=== PATIENT | female | born 1985 | race Caucasian/White ===

== ENCOUNTER 2017-05-28 16:12 | Outpatient (CLI) | payer OTHER | END 2017-05-28 16:13 | disposition critical access hospital (66) | LOC: EMS 16:12 | PROVIDERS: ATTEND Surgery | DX: O14.95 Unspecified pre-eclampsia, complicating the puerperium (principal) | CPT/HCPCS: A0425; A0426 ==

== ENCOUNTER 2017-05-28 16:46 | Inpatient (IN) | payer OTHER ==
[2017-05-28] MEDS ORDERED: SODIUM CHLORIDE FLUSH 0.9% 10 ML SYRINGE ONE (17:26)
[2017-05-28] MEDS ORDERED: HYDROmorphone 1 MG/ML SYRINGE IVP PRN (17:50)
[2017-05-28] MEDS ORDERED: ONDANSETRON 4 MG/2 ML VIAL IVP PRN (17:50)
[2017-05-28] MEDS ORDERED: ACETAMINOPHEN 1,000 MG/100 ML 100 ML IV SCH (18:00)
[2017-05-28] MEDS: LACTATED RINGERS 1,000 ML IV SCH (18:49)
[2017-05-28] MEDS ORDERED: MAGNESIUM SULFATE 40 GM in LACTATED RINGERS 420 ML IV SCH (19:00)
[2017-05-28] MEDS ORDERED: LABETALOL 100 MG TABLET PO ONE (19:14)
[2017-05-28] MEDS: HYDROcod/ACETAM 5/325 MG TABLET PO PRN ×2 (19:55→23:47)
--- NOTE | 2017-05-28 20:40 | HISTORY & PHYSICAL EXAMINATION ---
DATE OF SERVICE: 05/28/2017 Physician: Leonid Liriano MD DATE OF ADMISSION: 05/28/2017. DIAGNOSES 1. Preeclampsia (severe), . 2. Transfer from [facility]. Dr. Ross of [facility] called at just before at around 1600 hours to request transfer of Mrs. Mira Baker due to preeclampsia and need for hospital care. Dr. Leonid Liriano accepted the transfer. The patient was sent by [facility]. Mrs. Mira Baker is a 32-year-old , 2, para 2-0-0-2, woman now 4 days after an uneventful delivery of a macrosomic male on the 24 of May. weight was 4575 grams with Apgars of 8/9 and there was only minor lacerations to be repaired. She was originally induced for proteinuria, but did not have the usual constellation of symptoms associated with preeclampsia. Overall, her course was benign with no hypertensive episodes and she was discharged home. Today, she felt odd and "woozy" with notable edema of the lower legs. She had a dull, localized suboccipital headache without scotoma or scintillation. Vision was blurry. She does not note nausea, vomiting, right upper quadrant pain or nuchal rigidity. She has no fevers, chills, but she does have occasional night sweats. She has no systemic symptoms such as nausea, vomiting. She has no calf pain. Her vaginal bleeding is tapering to almost nil. She was without difficulty. At home, her blood pressure was 170/110 and she was admitted to the clinic at which time, her blood pressure was noted to be 175/107. [facility]: White count 9.1, hemoglobin 10.8, platelets 243. ALLERGIES: NO KNOWN DRUG ALLERGIES. MEDICATIONS 1. Epifoam. 2. Ibuprofen 800 q. 8h. p.r.n. 3. Labetalol 20 mg IV push previously given. 4. Levothyroxine 88 mcg daily. 5. Magnesium sulfate 4 gram bolus with current rate 2 grams. 6. vitamins with iron and folic acid. 7. Witch edvin. 8. Zofran 4 mg tabs. SOCIAL HISTORY: , [place] dependent. No drug, tobacco or alcohol use. Safe environment. No inheritable disease. FAMILY HISTORY: Breast cancer, diabetes, heart disease, hypertension and thyroid disease. PHYSICAL EXAMINATION GENERAL: The patient lying comfortably in bed in a darkened room. HEENT: EOMI, nonicteric sclerae. Dentition in good repair. NECK: No lymphadenopathy, pharyngitis. Thyroid is normal. LUNGS: Clear to auscultation with good air movement. CARDIOVASCULAR: Regular. No significant murmurs. Murmur of . No gallop or rub. ABDOMEN: No right upper quadrant or epigastric tenderness. Nondistended. No notable tenderness. No CVA tenderness. UTERUS: 16-17 week size, firm, nontender. GENITALIA: Minimal nonfoul lochia. No apparent disruption of laceration repair. Edema as expected. EXTREMITIES: Tibial edema 2+ 4-5 cm, pitting noted. No calf tenderness. NEUROLOGIC: Cranial nerves grossly intact. Patellar reflexes 2+ symmetric, 2 beat clonus. PSYCHOLOGIC: Good spirits, alert, oriented. Minimal anxiety. ASSESSMENT: The patient has documented elevated blood pressure and headache, symptoms consistent with severe preeclampsia. Preeclampsia post-delivery is less common than antepartum but a not infrequent entity. She has been appropriately dosed with magnesium sulfate. We are awaiting repeat labs and magnesium level to determine the adequacy of current dosing protocol. Overall, the patient is stable and did well through the transport. Anticipate that she will need 2-3 days of supportive care and at least 48 hours of magnesium sulfate to ensure she is safe from seizure activity. TD: 05/28/2017 20:39 MTDD
[2017-05-28] MEDS: ACETAMINOPHEN 500 MG TABLET PO SCH (20:59)
[2017-05-28] MEDS ORDERED: LABETALOL 100 MG TABLET PO SCH (21:00)
[2017-05-29] MEDS: SODIUM CHLORIDE FLUSH 0.9% 10 ML SYRINGE IVP SCH ×4 (04:45→11:54)
[2017-05-29] MEDS: ACETAMINOPHEN 500 MG TABLET PO SCH ×3 (05:06→21:14)
[2017-05-29] MEDS ORDERED: hydrALAZINE INJ 20 MG/ML VIAL IVP ONE (06:15)
[2017-05-29] MEDS: HYDROcod/ACETAM 5/325 MG TABLET PO PRN ×2 (06:31→10:34)
[2017-05-29 07:12] LABS: ALBUMIN 2.7 g/dL (3.2-5.5); ALBUMIN/GLOBULIN RATIO 0.8 (1.0-2.2); BILIRUBIN,TOTAL 0.3 mg/dL (0.2-1.0); CALCIUM 8.3 mg/dL (8.5-10.3); CREATININE 0.7 mg/dL (0.4-1.0); TOTAL PROTEIN 6.2 g/dL (6.7-8.2)
[2017-05-29 07:23] LABS: BASOPHILS % (AUTO) 0.6 %; EOSINOPHILS # (AUTO) 0.3 10^3/uL (0.0-0.7); EOSINOPHILS % (AUTO) 3.7 %; HGB - HEMOGLOBIN 10.6 g/dL (12.0-16.0); LYMPHOCYTES # (AUTO) 2.1 10^3/uL (1.5-3.5); LYMPHOCYTES % (AUTO) 27.9 %; MEAN CORPUSCULAR HEMOGLOBIN 26.6 pg (27.0-31.0); MEAN CORPUSCULAR HGB CONC 33.5 g/dL (32.0-36.0); MEAN CORPUSCULAR VOLUME 79.4 fL (81.0-99.0); MONOCYTES # (AUTO) 0.6 10^3/uL (0.0-1.0); MONOCYTES % (AUTO) 8.5 %; NEUTROPHILS # (AUTO) 4.4 10^3/uL (1.5-6.6); NEUTROPHILS % (AUTO) 59.3 %; PLT - PLATELET COUNT 227 10^3/uL (130-450); RED BLOOD COUNT 3.97 10^6/uL (4.20-5.40); RED CELL DISTRIBUTION WIDTH 13.9 % (12.0-15.0); WHITE BLOOD COUNT 7.4 x10^3/uL (4.8-10.8)
[2017-05-29] MEDS ORDERED: ONDANSETRON 4 MG/2 ML VIAL IVP PRN (08:50)
--- NOTE | 2017-05-29 09:00 | PROVIDER PROGRESS NOTE ---
Subjective - Prog Note Date Prog Note Date: 05/29/17 Prog Note Time: 08:50 - Subjective Pt reports feeling: No change Subjective: Mrs. Baker is awake and complains of being restless due to lack of sleep. She slept only 2 hours last night due to headache pain and worry about her .The baby is currently rooming in with her along with her mother. She believes her headaches are migrainous in nature. In the past she has used Imitrex which is been ineffective. She also notes that her pedal edema has increased from yesterday.She has no significant visual changes or Right upper quadrant tenderness.She reports no shortness of breath or pain in her chest. She does have mild nausea but no vomiting Objective - Vital Signs/Intake & Output Vital Signs: Vital Signs x48h Temp Pulse Resp BP Pulse Ox 05/29/17 07:00 71 18 134/78 H 98 05/29/17 06:48 149/88 H 05/29/17 06:04 63 18 163/94 H 99 05/29/17 05:08 99.1 F 72 16 145/80 H 98 05/29/17 04:00 79 18 157/84 H 98 05/29/17 03:00 67 18 160/87 H 99 05/29/17 02:43 150/80 H 05/29/17 02:00 98.2 F 87 16 156/87 H 98 05/29/17 01:00 76 18 155/86 H 99 Intake & Output: Intake & Output 05/26/17 05/27/17 05/28/17 05/29/17 23:59 23:59 23:59 23:59 Intake Total 350 1400 Output Total 1300 1000 Balance -950 400 - Lab Results Fish Bones: 05/29/17 06:55 05/29/17 06:55 Other Labs: Lab Results x24hrs 05/29/17 05/29/17 05/28/17 Range/Units 06:55 06:55 22:43 WBC 7.4 (4.8-10.8) x10^3/uL RBC 3.97 L (4.20-5.40) 10^6/uL Hgb 10.6 L (12.0-16.0) g/dL Hct 31.5 L (37.0-47.0) % MCV 79.4 L (81.0-99.0) fL MCH 26.6 L (27.0-31.0) pg MCHC 33.5 (32.0-36.0) g/dL RDW 13.9 (12.0-15.0) % Plt Count 227 (130-450) 10^3/uL MPV 9.0 (7.9-10.8) fL Neut # 4.4 (1.5-6.6) 10^3/uL Lymph # 2.1 (1.5-3.5) 10^3/uL Tom[place]kins # 0.6 (0.0-1.0) 10^3/uL Eos # 0.3 (0.0-0.7) 10^3/uL Baso # 0.0 (0.0-0.1) 10^3/uL Absolute Nucleated RBC 0.00 x10^3/uL Nucleated RBC % 0.0 /100WBC Sodium 139 (135-145) mmol/L Potassium 3.6 (3.5-5.0) mmol/L Chloride 105 (101-111) mmol/L Carbon Dioxide 26 (21-32) mmol/L Anion Gap 8.0 (6-13) BUN 10 (6-20) mg/dL Creatinine 0.7 (0.4-1.0) mg/dL Estimated GFR (MDRD) 98 (>89) Glucose 96 (70-100) mg/dL Calcium 8.3 L (8.5-10.3) mg/dL Magnesium 3.5 H (1.7-2.8) mg/dL Total Bilirubin 0.3 (0.2-1.0) mg/dL AST 27 (10-42) IU/L ALT 24 (10-60) IU/L Alkaline Phosphatase 91 (42-121) IU/L Total Protein 6.2 L (6.7-8.2) g/dL Albumin 2.7 L (3.2-5.5) g/dL Globulin 3.5 (2.1-4.2) g/dL Albumin/Globulin Ratio 0.8 L (1.0-2.2) Physical Exam - Physical Exam General: positive: In Pain (Headache pain), Alert HEENT: positive: EOMI, Moist mucous membranes, Dentition normal Neck: positive: Supple w/out meningeal sx Cardiac: positive: Regular Rate Resipratory: positive: Other (A basilar rales clears with cough, possibly early atelectasis) Abdomen: positive: Normal Bowel sounds Female : positive: Enlarged uterus (17 week size soft nontender) Extremities: positive: Other (Tibial edema persists) Skin: positive: Warm and dry Neurologic: positive: Alert and Oriented X 3, Normal reflexes, Other (No clonus) PSYCH: positive: Anxious Assessment/Plan - Assessment/Plan Assessment: Currently patient's blood pressure is controlled but labile. Anticipate at least 48 - 72 hours of mag sulfate for adequate seizure prophylaxis. Last mag level was 3.6, below the target range of 4.8-9.6. Uncertain if her headache is migrainous or a manifestation and severe preeclampsia. Regardless Imitrex is not a viable solution.Tylenol is not holding the pain and so periodic fentanyl ivp can provide immediate relief. Morning PIH labs appear normal, uric acid and LDH pending. Plan: Plan * Mag drip increased to 2.75 g/h with recheck of mag level 6 hours post change * Fentanyl 25 mg IV push every 2 hours as needed headache pain control * IV push hydralazine 10 mg whenever systolic blood pressure over 160 or diastolic over 105 * Dr. Camacho to assume care responsibilities
[2017-05-29] MEDS ORDERED: hydrALAZINE INJ 20 MG/ML VIAL IVP PRN (09:11)
[2017-05-29] MEDS: LABETALOL 100 MG TABLET PO SCH ×2 (09:21→21:14)
[2017-05-29] MEDS: fentaNYL 100 MCG/2 ML VIAL IVP PRN ×2 (09:23→11:54)
[2017-05-29] MEDS: LACTATED RINGERS 1,000 ML IV SCH (10:25)
[2017-05-29] MEDS: MAGNESIUM SULFATE 40 GM in LACTATED RINGERS 420 ML IV SCH (10:53)
[2017-05-29] MEDS ORDERED: PROMETHAZINE 25 MG/1 ML VIAL IM SCH (13:52)
[2017-05-29] MEDS ORDERED: oxyCODONE 5 MG TABLET PO PRN (17:07)
[2017-05-29] MEDS: oxyCODONE 5 MG TABLET PO PRN (18:32)
[2017-05-29] MEDS: LEVOTHYROXINE 88 MCG TABLET PO SCH (23:15)
[2017-05-30] MEDS: ZOLPIDEM 5 MG TABLET PO PRN ×2 (00:14→21:05)
[2017-05-30] MEDS: MAGNESIUM SULFATE 40 GM in LACTATED RINGERS 420 ML IV SCH (01:06)
[2017-05-30] MEDS: ACETAMINOPHEN 500 MG TABLET PO SCH ×3 (05:18→21:06)
[2017-05-30] MEDS: LACTATED RINGERS 1,000 ML IV SCH ×2 (05:18→14:55)
--- NOTE | 2017-05-30 08:44 | PROVIDER PROGRESS NOTE ---
Subjective - Prog Note Date Prog Note Date: 05/30/17 Prog Note Time: 08:41 - Subjective Subjective: Pt is currently asleep. will not arouse at this time. Objective - Vital Signs/Intake & Output Reviewed Vital Signs: Yes Vital Signs: Vital Signs x48h Temp Pulse Resp BP Pulse Ox 05/30/17 08:00 36.6 C 76 18 146/92 H 98 05/30/17 07:00 66 16 144/95 H 97 05/30/17 06:00 67 16 134/84 H 05/30/17 05:00 60 18 133/87 H 05/30/17 04:13 71 16 137/90 H 97 05/30/17 03:00 74 16 126/91 H 99 05/30/17 02:00 61 16 125/80 97 05/30/17 01:00 77 18 133/83 H 98 Intake & Output: Intake & Output 05/27/17 05/28/17 05/29/17 05/30/17 23:59 23:59 23:59 23:59 Intake Total 350 4900 488.627 Output Total 1300 5250 1250 Balance -950 -350 -761.373 - Lab Results Fish Bones: 05/29/17 06:55 05/29/17 06:55 Other Labs: Lab Results x24hrs 05/29/17 05/29/17 05/29/17 Range/Units 13:21 06:55 06:55 Uric Acid 5.1 (2.6-7.2) mg/dL Magnesium 5.1 H* (1.7-2.8) mg/dL Lactate Dehydrogenase 230 H (91-225) IU/L Assessment/Plan - Problem List (1) Preeclampsia Impression: Blood presume improved control. will see later as pt is getting much needed sleep
[2017-05-30] MEDS: LABETALOL 100 MG TABLET PO SCH ×2 (09:58→21:05)
[2017-05-30] MEDS: POLYETHYLENE GLYCOL 3350 17 GM PACKET PO SCH ×2 (10:03→14:28)
--- NOTE | 2017-05-30 12:33 | PROVIDER PROGRESS NOTE ---
Subjective - Prog Note Date Prog Note Date: 05/30/17 Prog Note Time: 12:31 - Subjective Pt reports feeling: Improved (Pt GOLDSMITH improving 06/29. notes fatigue. breast feeding) Objective - Vital Signs/Intake & Output Reviewed Vital Signs: Yes Vital Signs: Vital Signs x48h Temp Pulse Resp BP Pulse Ox 05/30/17 11:00 136/84 H 05/30/17 09:58 72 16 130/90 H 05/30/17 08:50 36.5 C 134/84 H 05/30/17 08:00 36.6 C 76 18 146/92 H 98 05/30/17 07:00 66 16 144/95 H 97 05/30/17 06:00 67 16 134/84 H 05/30/17 05:00 60 18 133/87 H Intake & Output: Intake & Output 05/27/17 05/28/17 05/29/17 05/30/17 23:59 23:59 23:59 23:59 Intake Total 350 4900 488.627 Output Total 1300 5250 2175 Balance -950 -350 -1686.373 - Objective General Appearance: positive: No acute distress, Alert, Mild distress Respiratory: positive: Chest non-tender, No respiratory distress, Breath sounds nml Cardiovascular: positive: Regular rate & rhythm, No murmur, No gallop Abdomen: positive: Non-tender, Mass (14 week size uterus) Back: positive: CVA tenderness (R), CVA tenderness (L) Skin: positive: Color nml, No rash, Warm, Dry Extremities: positive: Pedal edema (Trace). negative: Calf tenderness, Alix's sign/cords Neurologic/Psychiatric: positive: Oriented x3, Motor nml Reflexes: Knee (R): 1+, Knee (L): 1+ Comments/Other: No clonus - Lab Results Fish Bones: 05/29/17 06:55 05/29/17 06:55 Other Labs: Lab Results x24hrs 05/30/17 05/29/17 Range/Units 10:47 13:21 Magnesium 6.7 H* 5.1 H* (1.7-2.8) mg/dL Assessment/Plan - Problem List (1) Preeclampsia Impression: Pt appears to be improving with diaeresis. Mag level above theraputic. (6.7) decrease Mag to 2.25 Mag level at 1600 Stop MAg tomorrow AM
[2017-05-30] MEDS ORDERED: MAGNESIUM SULFATE 40 GM in LACTATED RINGERS 420 ML IV SCH ×2 (12:38→16:00)
[2017-05-30] MEDS: SODIUM CHLORIDE FLUSH 0.9% 10 ML SYRINGE IVP SCH ×2 (14:28→14:29)
[2017-05-30] MEDS: hydrALAZINE 10 MG TABLET PO SCH ×2 (18:26→23:14)
[2017-05-30] MEDS ORDERED: hydrALAZINE 10 MG TABLET PO SCH (21:00)
[2017-05-30] MEDS: LEVOTHYROXINE 88 MCG TABLET PO SCH (21:06)
[2017-05-31] MEDS: LACTATED RINGERS 1,000 ML IV SCH ×2 (01:22→10:19)
[2017-05-31 02:12] LABS: BASOPHILS # (AUTO) 0.1 10^3/uL (0.0-0.1); BASOPHILS % (AUTO) 1.4 %; EOSINOPHILS # (AUTO) 0.3 10^3/uL (0.0-0.7); EOSINOPHILS % (AUTO) 3.6 %; HGB - HEMOGLOBIN 10.9 g/dL (12.0-16.0); LYMPHOCYTES # (AUTO) 1.8 10^3/uL (1.5-3.5); MEAN CORPUSCULAR HEMOGLOBIN 26.3 pg (27.0-31.0); MEAN CORPUSCULAR HGB CONC 32.8 g/dL (32.0-36.0); MEAN CORPUSCULAR VOLUME 80.2 fL (81.0-99.0); MEAN PLATELET VOLUME 8.3 fL (7.9-10.8); MONOCYTES # (AUTO) 0.7 10^3/uL (0.0-1.0); MONOCYTES % (AUTO) 7.2 %; NEUTROPHILS # (AUTO) 6.5 10^3/uL (1.5-6.6); NEUTROPHILS % (AUTO) 68.8 %; PLT - PLATELET COUNT 278 10^3/uL (130-450); RED BLOOD COUNT 4.12 10^6/uL (4.20-5.40); RED CELL DISTRIBUTION WIDTH 14.5 % (12.0-15.0); WHITE BLOOD COUNT 9.4 x10^3/uL (4.8-10.8)
[2017-05-31 02:20] LABS: URIC ACID 5.6 mg/dL (2.6-7.2)
[2017-05-31] MEDS ORDERED: PHENAZOPYRIDINE 100 MG TABLET PO SCH ×2 (04:00→14:00)
[2017-05-31] MEDS ORDERED: HYDROcod/ACETAM 5/325 MG TABLET PO SCH (04:00)
[2017-05-31 04:12] LABS: BILIRUBIN,URINE NEGATIVE (NEGATIVE); GLUCOSE, URINE (UA) NEGATIVE (NEGATIVE); KETONES,URINE (UA) NEGATIVE (NEGATIVE); LEUKOCYTE ESTERASE, URINE NEGATIVE (NEGATIVE); NITRITE,URINE NEGATIVE (NEGATIVE); OCCULT BLOOD,URINE LARGE (NEGATIVE); PROTEIN,URINE 30 mg/dL (NEGATIVE); UROBILINOGEN,URINE 0.2 (NORMAL) E.U./dL (NORMAL)
[2017-05-31 04:18] LABS: CLARITY,URINE HAZY (CLEAR)
[2017-05-31 04:20] LABS: CREATININE,URINE 58.7 mg/dL; PROTEIN/CREATININE RATIO,URINE 0.5 (<=0.2)
[2017-05-31 04:20] LABS: BACTERIA,URINE Many /HPF (None Seen); SQUAMOUS EPITHELIAL CELL,UR FEW Squamous (<= Few)
[2017-05-31] MEDS: NITROFURANTOIN MACRO 100 MG CAPSULE PO SCH ×2 (05:09→18:51)
[2017-05-31] MEDS: hydrALAZINE 10 MG TABLET PO SCH ×2 (06:02→12:14)
[2017-05-31] MEDS: ACETAMINOPHEN 500 MG TABLET PO SCH ×2 (06:45→20:22)
[2017-05-31] MEDS: LABETALOL 100 MG TABLET PO SCH ×2 (09:03→20:14)
[2017-05-31] MEDS: POLYETHYLENE GLYCOL 3350 17 GM PACKET PO SCH (09:03)
--- NOTE | 2017-05-31 09:09 | PROVIDER PROGRESS NOTE ---
Subjective - Prog Note Date Prog Note Date: 05/31/17 Prog Note Time: 09:07 - Subjective Pt reports feeling: Improved (Head ach resolved pain 07/30. mostley bladder.) Objective - Vital Signs/Intake & Output Reviewed Vital Signs: Yes Vital Signs: Vital Signs x48h Temp Pulse Resp BP Pulse Ox 05/31/17 07:01 70 14 143/86 H 97 05/31/17 06:00 78 145/98 H 05/31/17 05:00 16 152/87 H 99 05/31/17 04:00 79 155/65 H 05/31/17 03:07 37.0 C 75 16 156/97 H 97 05/31/17 02:00 37.0 C 77 16 145/93 H 96 Intake & Output: Intake & Output 05/28/17 05/29/17 05/30/17 05/31/17 23:59 23:59 23:59 23:59 Intake Total 350 4900 2595.489 1840.833 Output Total 1300 5250 3125 1525 Balance -950 -350 -529.511 315.833 - Objective General Appearance: positive: No acute distress, Alert Respiratory: positive: Chest non-tender, No respiratory distress, Breath sounds nml Cardiovascular: positive: Regular rate & rhythm, No murmur, No gallop Abdomen: positive: Non-tender, Nml bowel sounds, Mass (U-3) Back: negative: CVA tenderness (R), CVA tenderness (L) Skin: positive: Color nml, No rash, Warm, Dry Neurologic/Psychiatric: positive: Oriented x3 Reflexes: Knee (R): 2+ (No Clonus), Knee (L): 2+ (no Clonus) - Lab Results Fish Bones: 05/31/17 01:56 05/29/17 06:55 Other Labs: Lab Results x24hrs 05/31/17 05/31/17 05/31/17 Range/Units 03:40 01:56 01:56 WBC 9.4 (4.8-10.8) x10^3/uL RBC 4.12 L (4.20-5.40) 10^6/uL Hgb 10.9 L (12.0-16.0) g/dL Hct 33.0 L (37.0-47.0) % MCV 80.2 L (81.0-99.0) fL MCH 26.3 L (27.0-31.0) pg MCHC 32.8 (32.0-36.0) g/dL RDW 14.5 (12.0-15.0) % Plt Count 278 (130-450) 10^3/uL MPV 8.3 (7.9-10.8) fL Neut # 6.5 (1.5-6.6) 10^3/uL Lymph # 1.8 (1.5-3.5) 10^3/uL [place] # 0.7 (0.0-1.0) 10^3/uL Eos # 0.3 (0.0-0.7) 10^3/uL Baso # 0.1 (0.0-0.1) 10^3/uL Absolute Nucleated RBC 0.00 x10^3/uL Nucleated RBC % 0.0 /100WBC Uric Acid 5.6 (2.6-7.2) mg/dL Magnesium (1.7-2.8) mg/dL AST 19 (10-42) IU/L Lactate Dehydrogenase (91-225) IU/L Urine Color YELLOW Urine Clarity HAZY (CLEAR) Urine pH 7.0 (5.0-7.5) PH Ur Specific [place] >=1.030 H (1.002-1.030) Urine Protein 30 H (NEGATIVE) mg/dL Urine Glucose (UA) NEGATIVE (NEGATIVE) mg/dL Urine Ketones NEGATIVE (NEGATIVE) mg/dL Urine Occult Blood LARGE H (NEGATIVE) Urine Nitrite NEGATIVE (NEGATIVE) Urine Bilirubin NEGATIVE (NEGATIVE) Urine Urobilinogen 0.2 (NORMAL) (NORMAL) E.U./dL Ur Leukocyte Esterase NEGATIVE (NEGATIVE) Urine RBC 11-25 H (0-5) /HPF Urine WBC 6-10 H (0-5) /HPF Ur Squamous Epith Cells FEW Squamous (<= Few) Urine Bacteria Many H (None Seen) /HPF Urine Culture Comments INDICATED Urine Creatinine mg/dL Ur Total Protein Timed mg/dL Protein/Creatinin Ratio (<=0.2) 05/31/17 05/31/17 05/31/17 Range/Units 01:56 01:56 01:10 WBC (4.8-10.8) x10^3/uL RBC (4.20-5.40) 10^6/uL Hgb (12.0-16.0) g/dL Hct (37.0-47.0) % MCV (81.0-99.0) fL MCH (27.0-31.0) pg MCHC (32.0-36.0) g/dL RDW (12.0-15.0) % Plt Count (130-450) 10^3/uL MPV (7.9-10.8) fL Neut # (1.5-6.6) 10^3/uL Lymph # (1.5-3.5) 10^3/uL [place] # (0.0-1.0) 10^3/uL Eos # (0.0-0.7) 10^3/uL Baso # (0.0-0.1) 10^3/uL Absolute Nucleated RBC x10^3/uL Nucleated RBC % /100WBC Uric Acid (2.6-7.2) mg/dL Magnesium 5.9 H* (1.7-2.8) mg/dL AST (10-42) IU/L Lactate Dehydrogenase 215 (91-225) IU/L Urine Color Urine Clarity (CLEAR) Urine pH (5.0-7.5) PH Ur Specific [place] (1.002-1.030) Urine Protein (NEGATIVE) mg/dL Urine Glucose (UA) (NEGATIVE) mg/dL Urine Ketones (NEGATIVE) mg/dL Urine Occult Blood (NEGATIVE) Urine Nitrite (NEGATIVE) Urine Bilirubin (NEGATIVE) Urine Urobilinogen (NORMAL) E.U./dL Ur Leukocyte Esterase (NEGATIVE) Urine RBC (0-5) /HPF Urine WBC (0-5) /HPF Ur Squamous Epith Cells (<= Few) Urine Bacteria (None Seen) /HPF Urine Culture Comments Urine Creatinine 58.7 mg/dL Ur Total Protein Timed 31 mg/dL Protein/Creatinin Ratio 0.5 H (<=0.2) 05/30/17 05/30/17 05/30/17 Range/Units 18:06 14:13 10:47 WBC (4.8-10.8) x10^3/uL RBC (4.20-5.40) 10^6/uL Hgb (12.0-16.0) g/dL Hct (37.0-47.0) % MCV (81.0-99.0) fL MCH (27.0-31.0) pg MCHC (32.0-36.0) g/dL RDW (12.0-15.0) % Plt Count (130-450) 10^3/uL MPV (7.9-10.8) fL Neut # (1.5-6.6) 10^3/uL Lymph # (1.5-3.5) 10^3/uL [place] # (0.0-1.0) 10^3/uL Eos # (0.0-0.7) 10^3/uL Baso # (0.0-0.1) 10^3/uL Absolute Nucleated RBC x10^3/uL Nucleated RBC % /100WBC Uric Acid (2.6-7.2) mg/dL Magnesium 5.9 H* 6.8 H* 6.7 H* (1.7-2.8) mg/dL AST (10-42) IU/L Lactate Dehydrogenase (91-225) IU/L Urine Color Urine Clarity (CLEAR) Urine pH (5.0-7.5) PH Ur Specific [place] (1.002-1.030) Urine Protein (NEGATIVE) mg/dL Urine Glucose (UA) (NEGATIVE) mg/dL Urine Ketones (NEGATIVE) mg/dL Urine Occult Blood (NEGATIVE) Urine Nitrite (NEGATIVE) Urine Bilirubin (NEGATIVE) Urine Urobilinogen (NORMAL) E.U./dL Ur Leukocyte Esterase (NEGATIVE) Urine RBC (0-5) /HPF Urine WBC (0-5) /HPF Ur Squamous Epith Cells (<= Few) Urine Bacteria (None Seen) /HPF Urine Culture Comments Urine Creatinine mg/dL Ur Total Protein Timed mg/dL Protein/Creatinin Ratio (<=0.2) Assessment/Plan - Problem List (1) Preeclampsia Impression: Swelling resolved. BP Adiquit control. Taking both labetolol and Apresoline. Will taper off Magnesium (2) Cystitis Impression: Pt C/O bladder pain. Started on macobid and pyrideum start Motrin
[2017-05-31] MEDS ORDERED: MAGNESIUM SULFATE 40 GM in LACTATED RINGERS 420 ML IV SCH (09:18)
[2017-05-31] MEDS: IBUPROFEN 800 MG TABLET PO PRN ×2 (09:55→20:14)
[2017-05-31] MEDS: SODIUM CHLORIDE FLUSH 0.9% 10 ML SYRINGE IVP SCH ×3 (10:18→23:10)
[2017-05-31] MEDS: SODIUM CHLORIDE FLUSH 0.9% 10 ML SYRINGE IVP PRN ×2 (11:11→16:02)
[2017-05-31] MEDS ORDERED: hydrALAZINE INJ 20 MG/ML VIAL IVP ONE (15:53)
[2017-05-31] MEDS: hydrALAZINE 25 MG TABLET PO SCH ×2 (18:51→23:34)
[2017-05-31] MEDS: LEVOTHYROXINE 88 MCG TABLET PO SCH (20:14)
[2017-06-01] MEDS: ACETAMINOPHEN 500 MG TABLET PO SCH ×3 (05:25→16:36)
[2017-06-01] MEDS: NITROFURANTOIN MACRO 100 MG CAPSULE PO SCH ×3 (05:26→20:00)
[2017-06-01] MEDS: SODIUM CHLORIDE FLUSH 0.9% 10 ML SYRINGE IVP SCH ×4 (05:27→11:13)
[2017-06-01 08:20] LABS: CREATININE,URINE 67.3 mg/dL; PROTEIN/CREATININE RATIO,URINE 0.4 (<=0.2)
[2017-06-01] MEDS: LABETALOL 100 MG TABLET PO SCH ×2 (08:30→20:00)
[2017-06-01] MEDS: POLYETHYLENE GLYCOL 3350 17 GM PACKET PO SCH (08:30)
[2017-06-01] MEDS: hydrALAZINE 25 MG TABLET PO SCH ×3 (08:30→17:13)
[2017-06-01] MEDS: IBUPROFEN 800 MG TABLET PO PRN ×2 (08:31→20:00)
--- NOTE | 2017-06-01 11:26 | PROVIDER PROGRESS NOTE ---
Subjective - Prog Note Date Prog Note Date: 06/01/17 Prog Note Time: 11:24 - Subjective Pt reports feeling: Improved (Pt benito GOLDSMITH feels well. ambulating arround the room.) Objective - Vital Signs/Intake & Output Reviewed Vital Signs: Yes Vital Signs: Vital Signs x48h Temp Pulse Resp BP BP BP Pulse Ox 06/01/17 11:20 72 18 147/81 H 98 06/01/17 11:19 73 18 155/90 H 99 06/01/17 11:12 167/87 H 06/01/17 10:59 68 18 167/87 H 98 06/01/17 08:00 37.4 C 62 20 155/87 H 95 06/01/17 05:20 157/85 H 06/01/17 05:05 37.0 C 61 163/87 H Intake & Output: Intake & Output 05/29/17 05/30/17 05/31/17 06/01/17 23:59 23:59 23:59 23:59 Intake Total 4900 2595.489 1840.833 Output Total 5250 3125 2726 1 Balance -350 -529.511 -885.167 -1 - Objective General Appearance: positive: No acute distress, Alert Eyes Bilateral: positive: Normal inspection Respiratory: positive: Chest non-tender, No respiratory distress, Breath sounds nml Cardiovascular: positive: Regular rate & rhythm, No murmur Abdomen: positive: Non-tender, Nml bowel sounds, No distention Neurologic/Psychiatric: positive: Oriented x3, CN's nml (2-12) Reflexes: Knee (R): 1+ (No Clonus), Knee (L): 1+ (No Clonus) - Lab Results Fish Bones: 05/31/17 01:56 05/29/17 06:55 Other Labs: Lab Results x24hrs 06/01/17 Range/Units 07:04 Urine Creatinine 67.3 mg/dL Ur Total Protein Timed 28 mg/dL Protein/Creatinin Ratio 0.4 H (<=0.2) Assessment/Plan - Problem List (1) Preeclampsia Impression: Preeclampsia. swellling resolved completely. Some difficulty with BP control. will redraw complete PIH pannel increase Hydralizine to 50 qid
[2017-06-01 12:13] LABS: BASOPHILS # (AUTO) 0.1 10^3/uL (0.0-0.1); BASOPHILS % (AUTO) 0.7 %; EOSINOPHILS # (AUTO) 0.4 10^3/uL (0.0-0.7); EOSINOPHILS % (AUTO) 3.8 %; HGB - HEMOGLOBIN 11.7 g/dL (12.0-16.0); LYMPHOCYTES % (AUTO) 19.8 %; MEAN CORPUSCULAR HEMOGLOBIN 26.6 pg (27.0-31.0); MEAN CORPUSCULAR VOLUME 80.6 fL (81.0-99.0); MONOCYTES # (AUTO) 0.8 10^3/uL (0.0-1.0); MONOCYTES % (AUTO) 7.5 %; NEUTROPHILS % (AUTO) 68.2 %; PLT - PLATELET COUNT 313 10^3/uL (130-450); RED BLOOD COUNT 4.41 10^6/uL (4.20-5.40); RED CELL DISTRIBUTION WIDTH 14.2 % (12.0-15.0); WHITE BLOOD COUNT 10.3 x10^3/uL (4.8-10.8)
[2017-06-01 12:30] LABS: ALBUMIN 2.8 g/dL (3.2-5.5); ALBUMIN/GLOBULIN RATIO 0.8 (1.0-2.2); ALKALINE PHOSPHATASE 86 IU/L (42-121); ALT ALANINE AMINOTRANSFERASE 21 IU/L (10-60); AST ASPARTATE AMINOTRANSFERASE 24 IU/L (10-42); BILIRUBIN,TOTAL 0.3 mg/dL (0.2-1.0); BUN - BLOOD UREA NITROGEN 16 mg/dL (6-20); CALCIUM 9.3 mg/dL (8.5-10.3); CARBON DIOXIDE - CO2 24 mmol/L (21-32); CHLORIDE 105 mmol/L (101-111); CREATININE 0.7 mg/dL (0.4-1.0); GFR - MDRD 98 (>89); GLUCOSE 94 mg/dL (70-100); SODIUM 141 mmol/L (135-145); TOTAL PROTEIN 6.4 g/dL (6.7-8.2); URIC ACID 4.1 mg/dL (2.6-7.2)
[2017-06-01 12:35] LABS: BILIRUBIN,DIRECT < 0.1 mg/dL (0.1-0.5)
[2017-06-01] MEDS: oxyCODONE 5 MG TABLET PO PRN (16:36)
[2017-06-01] MEDS: LEVOTHYROXINE 88 MCG TABLET PO SCH (20:00)
[2017-06-02] MEDS: hydrALAZINE 25 MG TABLET PO SCH ×2 (00:01→06:19)
[2017-06-02] MEDS: SODIUM CHLORIDE FLUSH 0.9% 10 ML SYRINGE IVP SCH (00:03)
[2017-06-02] MEDS: ACETAMINOPHEN 500 MG TABLET PO SCH (00:23)
[2017-06-02] MEDS: POLYETHYLENE GLYCOL 3350 17 GM PACKET PO SCH (08:56)
[2017-06-02] MEDS: NITROFURANTOIN MACRO 100 MG CAPSULE PO SCH (08:57)
[2017-06-02] MEDS: IBUPROFEN 800 MG TABLET PO PRN (08:57)
[2017-06-02] MEDS: LABETALOL 100 MG TABLET PO SCH (08:57)
[2017-06-02 09:05] VITALS: BP 138/81
--- NOTE | 2017-06-02 09:36 | PROVIDER PROGRESS NOTE ---
Subjective - Prog Note Date Prog Note Date: 06/02/17 Prog Note Time: 09:34 - Subjective Pt reports feeling: Improved (Pt benito any GODLSMITH. Dysuria has totaly resolved. Up and about) Objective - Vital Signs/Intake & Output Reviewed Vital Signs: Yes Vital Signs: Vital Signs x48h Temp Pulse Resp BP Pulse Ox 06/02/17 09:00 36.7 C 84 16 138/81 H 98 06/02/17 06:17 36.7 C 70 12 149/51 H 97 06/02/17 04:57 36.6 C 62 16 146/83 H 97 06/02/17 03:59 36.7 C 58 L 12 142/83 H 97 06/02/17 01:43 36.7 C 79 24 145/85 H 99 Intake & Output: Intake & Output 05/30/17 05/31/17 06/01/17 06/02/17 23:59 23:59 23:59 23:59 Intake Total 2595.489 8424.891 3972 900 Output Total 3125 2726 801 Balance -529.511 -885.167 759 900 - Objective General Appearance: positive: No acute distress, Alert Neck: positive: Nml inspection Respiratory: positive: Chest non-tender, No respiratory distress, Breath sounds nml Cardiovascular: positive: Regular rate & rhythm, No murmur, No gallop Abdomen: positive: Non-tender, No organomegaly, Nml bowel sounds, No distention , Mass (16 week size). negative: Guarding, Rebound Reflexes: Knee (R): 0 (No Clonis), Knee (L): 0 (No Clonis) - Lab Results Fish Bones: 06/01/17 12:02 06/01/17 12:02 Other Labs: Lab Results x24hrs 06/01/17 06/01/17 06/01/17 Range/Units 12:02 12:02 12:02 WBC 10.3 (4.8-10.8) x10^3/uL RBC 4.41 (4.20-5.40) 10^6/uL Hgb 11.7 L (12.0-16.0) g/dL Hct 35.5 L (37.0-47.0) % MCV 80.6 L (81.0-99.0) fL MCH 26.6 L (27.0-31.0) pg MCHC 33.0 (32.0-36.0) g/dL RDW 14.2 (12.0-15.0) % Plt Count 313 (130-450) 10^3/uL MPV 8.0 (7.9-10.8) fL Neut # 7.0 H (1.5-6.6) 10^3/uL Lymph # 2.0 (1.5-3.5) 10^3/uL [place]ccreary # 0.8 (0.0-1.0) 10^3/uL Eos # 0.4 (0.0-0.7) 10^3/uL Baso # 0.1 (0.0-0.1) 10^3/uL Absolute Nucleated RBC 0.01 x10^3/uL Nucleated RBC % 0.0 /100WBC Sodium 141 (135-145) mmol/L Potassium 4.1 (3.5-5.0) mmol/L Chloride 105 (101-111) mmol/L Carbon Dioxide 24 (21-32) mmol/L Anion Gap 12.0 (6-13) BUN 16 (6-20) mg/dL Creatinine 0.7 (0.4-1.0) mg/dL Estimated GFR (MDRD) 98 (>89) Glucose 94 (70-100) mg/dL Uric Acid 4.1 (2.6-7.2) mg/dL Calcium 9.3 (8.5-10.3) mg/dL Magnesium 1.7 (1.7-2.8) mg/dL Total Bilirubin 0.3 (0.2-1.0) mg/dL Direct Bilirubin < 0.1 L (0.1-0.5) mg/dL AST 24 (10-42) IU/L ALT 21 (10-60) IU/L Alkaline Phosphatase 86 (42-121) IU/L Total Protein 6.4 L (6.7-8.2) g/dL Albumin 2.8 L (3.2-5.5) g/dL Globulin 3.6 (2.1-4.2) g/dL Albumin/Globulin Ratio 0.8 L (1.0-2.2) Assessment/Plan - Problem List (1) Preeclampsia Impression: Labs all normalized. Swelling completely resolved. No GOLDSMITH. Blood Pressure responded to increase in Apresoline. Send home on Labetolol 300 bid Apresoline 50 q6 hours Macrobid 100 bid Cauationed Re low BP less than 110/60 Follow up in the clinic in the week
--- NOTE | 2017-06-02 09:43 | Discharge Plan ---
Discharge Plan Disposition: 01 Home, Self Care Condition: Good Diet: Regular Activity Restrictions: No Restrictions Shower Restrictions: No (watch hot shours as they may make you light headed) Driving Restrictions: No Weight Bearing: Full Weight No Smoking: If you smoke, Please STOP! Call for help. Follow-up with: Leonid Liriano MD [Provider Admit Priv/Credential] -
--- NOTE | 2017-06-03 06:13 | DISCHARGE SUMMARY ---
Physician: Leonid Camacho MD DATE OF ADMISSION: 05/28/2017 DATE OF DISCHARGE: 06/02/2017 DATE OF ADMISSION: 05/28/2017 DATE OF DISCHARGE: 06/02/2017 ADMITTING DIAGNOSIS: Late onset severe preeclampsia. DISCHARGE DIAGNOSIS: Late onset severe preeclampsia. PROCEDURE: Magnesium sulfate. PRESENTING HISTORY: The patient is a 32-year-old G2, P2 female who delivered on 05/24/2017. She was induced because of proteinuria. She had a history of having preeclampsia with her previous . Her course was unremarkable. Her blood pressure normalized and on 05/28/2017 she noted marked swelling of her ankles. She presented to the clinic at [facility] at which time her blood pressure was 170/110. For this reason because they did not have the facilities, decided to transfer her here to [facility]. Her transfer was unremarkable. LABORATORIES: On admission, hemoglobin was 10.6, white count was 7.4, platelets were 227. Her electrolytes were all within normal limits with the exception of magnesium which was 3.5, however, compatible with the fact that she had been started on magnesium sulfate. Her total protein and albumin was a little bit on the low side. Her uric acid was elevated at 8.3. Subsequently, she had mag levels done to evaluate her therapeutic levels. They initially on the were 5.1, then they abe to 6.7 and 6.8. On the they were 5.9 and on the they were 1.7. Her platelets remained stable throughout without evidence of any kind of thrombocytopenia. Her hemoglobin increased over time. The day before discharge it was 11.7. Her uric acid over time decreased. Yesterday it was 4.1, in the normal range. Her BUN and creatinine also stayed normal. She did not have any bumps in her LFTs. During her course; however, she developed some dysuria and noted to have WBCs and RBCs and thus was started on antibiotics. She initially grew out E coli. Sensitivities are pending. On the the patient's protein creatinine ratio was 0.5. On the it was 0.4. HOSPITAL COURSE: The patient was admitted and started on magnesium sulfate. She was initially started on 2.0 and it was increased to 2.75. At that point, she was noted to have an increased level, so this was cut back to 2.2 and then eventually dropped all the way back to 2.0. Her headaches resolved. Her swelling also resolved over time. She had a Aceves catheter placed and did develop dysuria and thus this was removed at which time she was noted to have a UTI and was started on Macrobid. The patient's pressures at this particular time have all become in the acceptable range. Initially her blood pressures were 170s throughout her hospital course. They remained with the diastolics in the 80s; however, the systolics ranged from the 160s to the 120s. Eventually she is being discharged to home today. The last 24 hours her blood pressures have run from a maximum of 149 to her lowest at 138. Diastolics have been from 51-85. She is being discharged to home with discharge medications of Apresoline 50 mg p.o. q.6h., labetalol 300 mg p.o. b.i.d. She has also been sent home on Macrodantin 100 mg p.o. b.i.d. for another 5 days. She has been instructed to monitor her blood pressures at home. Should they become less than 100/50 she is to cut the Apresoline to 25 and taper the Apresoline initially. She was instructed to followup in the clinic this coming week with caution should she develop headaches and lots of swelling to present sooner. TD: 06/03/2017 06:12
== END 2017-06-02 10:00 | disposition home or self-care (01) | DRG 776 ==
LOC: WFO 16:46 → FBP 16:47 → WFO 17:49 → FBP 17:50
PROVIDERS: ADMIT Obstetrics & Gynecology; ATTEND Obstetrics & Gynecology
DX: O14.15 Severe pre-eclampsia, complicating the puerperium (principal); O86.22 Infection of bladder following delivery; B96.20 Unspecified Escherichia coli [E. coli] as the cause of diseases classified elsewhere; O90.89 Other complications of the puerperium, not elsewhere classified; R51 Headache
CPT/HCPCS: 36415; 80053; 80076; 81001; 82570; 83615; 83735; 84156; 84450; 84550; 85025; 87086

== ENCOUNTER 2017-06-02 16:03 | Outpatient (CLI) | payer OTHER ==
[2017-06-02 18:01] VITALS: BP 143/93
== END 2017-06-02 17:15 | disposition home or self-care (01) ==
LOC: WFO 16:03 → FBP 16:04 → WFO 17:15
PROVIDERS: ATTEND Obstetrics & Gynecology
DX: O14.15 Severe pre-eclampsia, complicating the puerperium (principal)